=== PATIENT | female | born 1940 | race Caucasian/White ===

== ENCOUNTER 2017-11-08 19:08 | Inpatient (IN) | payer MEDICARE ==
[~2017-11-08] VITALS: Ht 152.4 cm; Wt 71.7 kg
[~2017-11-08 19:08] MED LIST: ATEN25TA PO; GLIP5TAB10 PO; HYDR30CR61 TP; OMEG1CAP28 PO; POLY17PO5 PO; SIMV10TA3 PO
--- NOTE | 2017-11-08 19:23 | ED.ADGEN ---
Past History Past Medical History: Bronchitis, Pneumonia, Other Adult General Chief Complaint Chief Complaint " I ve been coughing and sick since tuesday... it feel like there is a hum in my chest.. like a cat purring... when I breath..."." I feel short of breath ... " I ve had pneumonia three times now..."..." I cant get any rest because of the constant coughing..." HPI HPI Patient is a 77 year old female who presents with above hx and complaints of coughing. Pt. complaints of increased dyspnea. Pt. denies any travel or specific ill contacts. Patient has history of episodes of pneumonia in the past. Patient reports severe coughing episode, and has been unable to sleep at night. Patient normally follows with Dr Lloyd. . Review of Systems Review of Systems Constitutional: Complaints of fever and chills [] Eyes: Denies change in visual acuity, redness, or eye pain [] HENT: Hx of nasal congestion and sore throat [] Respiratory : Compliant of cough and shortness of breath [] Cardiovascular: No additional information not addressed in HPI [] GI: Denies abdominal pain, nausea, vomiting, bloody stools or diarrhea [] : Denies dysuria or hematuria [] Musculoskeletal: Denies back pain or joint pain [] Integument: Denies rash or skin lesions [] Neurologic: Denies headache, focal weakness or sensory changes [] Endocrine: Denies polyuria or polydipsia [] All other systems were reviewed and found to be within normal limits, except as documented in this note. Family History Family History Non-contributory Current Medications Current Medications Current Medications Medications (Trade) Dose Ordered Sig/Carolyn Start Time Stop Time Status Last Admin Dose Admin Albuterol/ Ipratropium (Duoneb) 3 ml 1X ONCE 11/08/17 21:00 11/08/17 21:01 Aspirin (Children'S Aspirin) 324 mg 1X ONCE 11/08/17 19:45 11/08/17 19:46 DC 11/08/17 19:58 324 MG Enoxaparin Sodium (Lovenox 80mg Syringe) 70 mg 1X ONCE 11/08/17 20:45 11/08/17 20:49 DC Methylprednisolone Sodium Succinate (SOLU-Medrol 125MG VIAL) 125 mg 1X ONCE 11/08/17 21:00 11/08/17 21:01 Allergies Allergies Allergies Coded Allergies Type Severity Reaction Last Updated Verified adhesive Allergy Intermediate TAPE "Tears skin off" 07/19/14 Yes Physical Exam Physical Exam Constitutional: Moderately acute distress, non-toxic appearance. [] HENT: Normocephalic, atraumatic, bilateral external ears normal, injected pharynx, oropharynx moist, no oral exudates, nose rhinorrhea. Eyes: PERRLA, EOMI, conjunctiva normal, no discharge. [] Neck: Normal range of motion, no tenderness, supple, no stridor. [] Cardiovascular:Heart rate regular rhythm, no murmur , PMI to Lt. Lungs & Thorax: Bilateral breath sounds equal apex with scattered wheezes on auscultation [] Abdomen: Bowel sounds normal, soft, no tenderness, no masses, no pulsatile masses. Obese Skin: Warm, dry, no erythema, no rash. [] Back: No tenderness, no CVA tenderness. [] Extremities: No tenderness, no cyanosis, no clubbing, ROM intact, 1-2+ ankle edema. [] No cording appreciated. Neurologic: Alert and oriented X 3, normal motor function, normal sensory function, no focal deficits noted. [] Psychologic: Affect anxious, judgement normal, mood normal. [] Current Patient Data Vital Signs Vital Signs Date Time Temp Pulse Resp B/P (MAP) Pulse Ox O2 Delivery O2 Flow Rate FiO2 11/08/17 19:08 80 18 96 Room Air Lab Results Laboratory Tests Test 11/08/17 19:30 11/08/17 20:01 White Blood Count 6.9 x10^3/uL (4.0-11.0) Red Blood Count 4.63 x10^6/uL (3.50-5.40) Hemoglobin 14.8 g/dL (12.0-15.5) Hematocrit 43.5 % (36.0-47.0) Mean Corpuscular Volume 94 fL (79-100) Mean Corpuscular Hemoglobin 32 pg (25-35) Mean Corpuscular Hemoglobin Concent 34 g/dL (31-37) Red Cell Distribution Width 12.8 % (11.5-14.5) Platelet Count 158 x10^3/uL (140-400) Neutrophils (%) (Auto) 49 % (31-73) Lymphocytes (%) (Auto) 37 % (24-48) Monocytes (%) (Auto) 7 % (0-9) Eosinophils (%) (Auto) 6 % (0-3) H Basophils (%) (Auto) 1 % (0-3) Neutrophils # (Auto) 3.4 x10^3uL (1.8-7.7) Lymphocytes # (Auto) 2.6 x10^3/uL (1.0-4.8) Monocytes # (Auto) 0.5 x10^3/uL (0.0-1.1) Eosinophils # (Auto) 0.4 x10^3/uL (0.0-0.7) Basophils # (Auto) 0.1 x10^3/uL (0.0-0.2) Prothrombin Time 11.5 SEC (9.4-11.4) H Prothrombin Time INR 1.1 (0.9-1.1) PTT 26 SEC (23-33) D-Dimer (Earlene) 0.58 mg/L (0.00-0.50) H Sodium Level 139 mmol/L (136-145) Potassium Level 4.2 mmol/L (3.5-5.1) Chloride Level 103 mmol/L (98-107) Carbon Dioxide Level 27 mmol/L (21-32) Anion Gap 9 (6-14) Blood Urea Nitrogen 23 mg/dL (7-20) H Creatinine 0.8 mg/dL (0.6-1.0) Estimated GFR (Cockcroft-Gault) 69.2 Glucose Level 74 mg/dL (70-99) Lactic Acid Level 1.1 mmol/L (0.4-2.0) Calcium Level 9.2 mg/dL (8.5-10.1) Magnesium Level 1.8 mg/dL (1.8-2.4) Total Bilirubin 0.7 mg/dL (0.2-1.0) Direct Bilirubin 0.2 mg/dL (0.0-0.2) Aspartate Amino Transferase (AST) 33 U/L (15-37) Alanine Aminotransferase (ALT) 29 U/L (14-59) Alkaline Phosphatase 103 U/L (46-116) Creatine Kinase 89 U/L (26-192) Creatine Kinase MB (Mass) 0.9 ng/mL (0.0-3.6) Creatine Kinase MB Relative Index 1.0 % (0-4) Troponin I Quantitative < 0.017 ng/mL (0-0.055) EW-Blh-O-Type Natriuretic Peptide 102 pg/mL (0-449) Total Protein 8.3 g/dL (6.4-8.2) H Albumin 3.9 g/dL (3.4-5.0) Lipase 240 U/L (73-393) Influenza Type A (Rapid) Negative (NEGATIVE) Influenza Type B (Rapid) Negative (NEGATIVE) Urine Collection Type Unknown Urine Color Yellow Urine Clarity Clear Urine pH 5.5 Urine Specific [place] <=1.005 Urine Protein Neg (NEG-TRACE) Urine Glucose (UA) Neg mg/dL (NEG) Urine Ketones (Stick) Neg mg/dL (NEG) Urine Blood Trace (NEG) Urine Nitrite Neg (NEG) Urine Bilirubin Neg (NEG) Urine Urobilinogen Dipstick 0.2 mg/dL (0.2 mg/dL) Urine Leukocyte Esterase Small (NEG) Urine RBC Occ /HPF (0-2) Urine WBC Occ /HPF (0-4) Urine Squamous Epithelial Cells Occ /LPF Urine Bacteria 0 /HPF (0-FEW) Urine Opiates Screen Neg (NEG) Urine Methadone Screen Neg (NEG) Urine Barbiturates Neg (NEG) Urine Phencyclidine Screen Neg (NEG) Urine Amphetamine/Methamphetamine Neg (NEG) Urine Benzodiazepines Screen Neg (NEG) Urine Cocaine Screen Neg (NEG) Urine Cannabinoids Screen Neg (NEG) Urine Ethyl Alcohol Neg (NEG) EKG EKG My interpretation of EKG shows a sinus rhythm at 77 bpm. No findings acute STEMI with contralateral changes.[] Radiology/Procedures Radiology/Procedures My interpretation of chest x-ray shows cardiomegaly and some basilar linear atelectasis versus infiltrate. Does have some findings consistent with bronchial cuffing. CT chest pending at time of admission.[] Course & Med Decision Making Course & Med Decision Making Pertinent Labs and Imaging studies reviewed. (See chart for details). Discussed presentation, testing and treatment plan with Dr. Lloyd. Will admit for further eval.and tx. 2030 hrs [] Final Impression Final Impression 1. Cough[] 2. Dyspnea 3. Bronchitis/ COPD exacerbation 4. UTI 5. Viral Syndrome 6. Elevated D-dimer Problems: Dragon Disclaimer Dragon Disclaimer This electronic medical record was generated, in whole or in part, using a voice recognition dictation system. ÁLVARO VERA MD Nov 08, 2017 19:23
[2017-11-08] MEDS ORDERED: ASPIRIN 81 MG TAB.CHEW PO ONE (19:45)
[2017-11-08 20:11] LABS: BASO # 0.1 x10^3/uL (0.0-0.2); BASO % 1 % (0-3); EOS # 0.4 x10^3/uL (0.0-0.7); EOS % 6 % (0-3); HEMATOCRIT 43.5 % (36.0-47.0); HEMOGLOBIN 14.8 g/dL (12.0-15.5); LYMPH # 2.6 x10^3/uL (1.0-4.8); LYMPH % 37 % (24-48); MEAN CORPUSCULAR HEMOGLOBIN 32 pg (25-35); MEAN CORPUSCULAR HGB CONC 34 g/dL (31-37); MEAN CORPUSCULAR VOLUME 94 fL (79-100); MONO # 0.5 x10^3/uL (0.0-1.1); MONO % 7 % (0-9); NEUT # 3.4 x10^3uL (1.8-7.7); NEUT % 49 % (31-73); PLATELET COUNT 158 x10^3/uL (140-400); RED BLOOD COUNT 4.63 x10^6/uL (3.50-5.40); RED CELL DISTRIBUTION WIDTH 12.8 % (11.5-14.5); WHITE BLOOD COUNT 6.9 x10^3/uL (4.0-11.0)
[2017-11-08 20:25] LABS: ALBUMIN 3.9 g/dL (3.4-5.0); CALCIUM 9.2 mg/dL (8.5-10.1); CREATININE 0.8 mg/dL (0.6-1.0); DIRECT BILIRUBIN 0.2 mg/dL (0.0-0.2); GFR 69.2; MAGNESIUM 1.8 mg/dL (1.8-2.4); POTASSIUM 4.2 mmol/L (3.5-5.1); TOTAL BILIRUBIN 0.7 mg/dL (0.2-1.0); TOTAL PROTEIN 8.3 g/dL (6.4-8.2)
[2017-11-08 20:25] LABS: BACTERIA,URINE 0 /HPF (0-FEW); BILIRUBIN,URINE NEG (NEG); CLARITY,URINE CLEAR; COLOR,URINE YELLOW; GLUCOSE,URINE NEG (NEG); NITRITE,URINE NEG (NEG); RBC,URINE OCC /HPF (0-2); SQUAMOUS EPITHELIAL CELL,UR OCC /LPF; UROBILINOGEN,URINE 0.2 mg/dL (0.2 mg/dL); WBC,URINE OCC /HPF (0-4)
[2017-11-08 20:38] LABS: BARBITURATES NEG (NEG); BENZODIAZEPINES NEG (NEG); CANNABINOIDS NEG (NEG); COCAINE NEG (NEG); METHADONE NEG (NEG); OPIATES NEG (NEG); PHENCYCLIDINE NEG (NEG)
[2017-11-08 20:41] LABS: AMPHETAMINE/METHAMPHETAMINE NEG (NEG)
[2017-11-08] MEDS ORDERED: ENOXAPARIN ** NOTE DOSE ** SYRINGE SQ ONE (20:45)
[2017-11-08 20:47] LABS: INFLUENZA A PATIENT NEGATIVE (NEGATIVE); INFLUENZA B PATIENT NEGATIVE (NEGATIVE)
[2017-11-08] MEDS ORDERED: IPRATRPIUM/ALBUTEROL 0.5/2.5MG 3 ML NEBU. NEB ONE (21:00)
[2017-11-08] MEDS ORDERED: ONDANSETRON PF 4 MG/2 ML VIAL. IV PRN (21:00)
[2017-11-08] MEDS ORDERED: methylPREDNISolone SOD SUCC PF 125 MG/2 ML VIAL. IV ONE (21:00)
[2017-11-08] MEDS ORDERED: cefTRIAXone IV Push 1 GM VIAL. IVP ONE (21:30)
[2017-11-08] MEDS ORDERED: CONTRAST GIVEN MC PRN (21:30)
[2017-11-08] MEDS ORDERED: IOHEXOL 300 MG/ML 75 ML VIAL. IV ONE (21:30)
--- NOTE | 2017-11-08 21:59 | RAD ---
PQRS Compliance Statement: One or more of the following individualized dose reduction techniques were utilized for this examination: 1. Automated exposure control 2. Adjustment of the mA and/or kV according to patient size 3. Use of iterative reconstruction technique CT angiography chest November 08, 2017 INDICATION: Chest pain on the left. History of pneumonia and COPD. COMPARISON: CT chest December 15, 2011. TECHNIQUE: Multiple axial CT images of the chest were obtained after the intravenous administration of 75 cc Omnipaque 300. Coronal and sagittal reformats are provided. Maximum intensity projection images are provided. FINDINGS: The thyroid gland is normal in appearance. There are no pathologically enlarged axillary, mediastinal or hilar lymph nodes. Heart size is enlarged. Thoracic aorta is normal in course and caliber. There is no pericardial effusion. There is adequate opacification of the pulmonary arterial system. No filling defects are identified to suggest acute or chronic pulmonary embolism. There is a solid noncalcified pulmonary nodule in the left lower lobe measuring 6 mm (series 4, image 84). There is a subpleural solid noncalcified pulmonary nodule in the right lower lobe measuring 6 mm (series 4, image 88). These findings are stable dating back to 2011 and presumed benign. Subsegmental atelectasis is noted at the lung bases. No new or enlarging solid noncalcified pulmonary nodules are visualized. There are no pleural effusions. There is no pulmonary vascular congestion or pneumothorax. Mild bronchial wall thickening suggestive of bronchitis. A superior pole left renal cyst is partially characterized. Cyst measures approximately 3.0 cm. No suspicious osseous lesions are identified. Sclerotic density involving T6 is favored to represent a bone island. IMPRESSION: 1. No evidence for acute pulmonary embolism. 2. Mild bronchial wall thickening is suggestive of bronchitis. 3. Mild cardiomegaly. Electronically signed by: Clarisa Hernandez MD (11/08/2017 9:56 PM) [facility] [place]
[2017-11-08 22:00] VITALS: BP 132/63
--- NOTE | 2017-11-08 22:56 | EKG ---
[address] [address] Test Date: 2017-11-08 Test Time: 19:38:22 Pat Name: MARCE CAMPBELL Department: Room: Gender: F Report Clerk: NICKIE : 1940 Requested By: ÁLVARO VERA Order Number: [id number] Reading MD: Measurements Intervals [place] Rate: 77 P: 37 SD: 160 QRS: 21 QRSD: 82 T: 47 QT: 394 QTc: 448 Interpretive Statements SINUS ARRHYTHMIA OTHERWISE NORMAL ECG RI6.01 No previous ECG available for comparison
[2017-11-08] MEDS ORDERED: SIMV20TA3 PO (23:07)
[2017-11-08] MEDS ORDERED: NITR0.4T SL (23:07)
[2017-11-08] MEDS ORDERED: ALPR0.254 PO (23:07)
[2017-11-08] MEDS ORDERED: ATEN50TA PO (23:07)
[2017-11-09 05:00] VITALS: BP 124/71
[2017-11-09 06:54] LABS: BASO % 0 % (0-3); EOS % 0 % (0-3); HEMATOCRIT 42.5 % (36.0-47.0); HEMOGLOBIN 14.5 g/dL (12.0-15.5); LYMPH # 0.7 x10^3/uL (1.0-4.8); LYMPH % 18 % (24-48); MEAN CORPUSCULAR HEMOGLOBIN 32 pg (25-35); MEAN CORPUSCULAR HGB CONC 34 g/dL (31-37); MEAN CORPUSCULAR VOLUME 93 fL (79-100); MONO % 1 % (0-9); NEUT # 3.4 x10^3uL (1.8-7.7); NEUT % 81 % (31-73); PLATELET COUNT 137 x10^3/uL (140-400); RED BLOOD COUNT 4.55 x10^6/uL (3.50-5.40); WHITE BLOOD COUNT 4.2 x10^3/uL (4.0-11.0)
[2017-11-09 06:59] LABS: CREATININE 0.9 mg/dL (0.6-1.0); GFR 60.4; POTASSIUM 4.1 mmol/L (3.5-5.1)
--- NOTE | 2017-11-09 07:49 | RAD ---
2 Views of the Chest 11/08/2017 9:35 PM Indication: cough, chest discomfort left side, shortness of breath Comparison: Chest radiograph July 28, 2013 Findings: There is no focal consolidation or infiltrate identified. There is no effusion or pneumothorax. The cardiomediastinal silhouette and pulmonary vasculature are within normal limits. No osseous abnormality is identified. Impression: No evidence of acute cardiopulmonary process.
[2017-11-09] MEDS ORDERED: ALPRAZolam 0.25 MG TABLET PO PRN (08:30)
[2017-11-09] MEDS: methylPREDNISolone SOD SUCC PF 40 MG/ML VIAL. IV SCH ×2 (08:32→21:03)
[2017-11-09] MEDS: LACTOBACILLUS RHAMNOSUS GG 1 CAPSULE. PO SCH ×2 (08:33→21:05)
[2017-11-09] MEDS: glipiZIDE 5 MG TABLET PO SCH (08:33)
[2017-11-09] MEDS: OMEGA-3 FATTY ACIDS/FISH OIL 1,000 MG CAPSULE. PO SCH (08:33)
[2017-11-09] MEDS: ATENOLOL 50 MG TABLET PO SCH (08:34)
[2017-11-09] MEDS: ENOXAPARIN 40 MG/0.4 ML DISP.SYRIN. SQ SCH ×2 (08:35→21:03)
[2017-11-09] MEDS: cefTRIAXone IV Push 1 GM VIAL. IVP SCH (08:39)
[2017-11-09 08:51] VITALS: BP 144/75
--- NOTE | 2017-11-09 11:59 | HP ---
ADMIT DATE: 11/08/2017 HISTORY OF PRESENT ILLNESS: A 77-year-old female, 3-4 days' of increased shortness of breath, could not breathe, came in through the Emergency Room, was found to have acute exacerbation of COPD and acute bronchitis, admitted because of shortness of breath, difficulty breathing, using accessory muscles to breathe. The patient was admitted for IV Solu-Medrol and aggressive pulmonary toilet as well as antibiotics. PAST MEDICAL HISTORY: Cataract extraction, tonsillectomy, cardiac disorders, coronary angioplasty with x 1, hypercholesterolemia, hypertension, COPD, bronchitis, diverticulosis, cholecystectomy, hemorrhoids, abdominal surgeries, hysterectomy, total bladder suspension, urinary tract infection, arthritis of the thumb, cyst removed from the right ankle, endocrine disorders, diabetes, depression, anxiety, blood transfusions in the past. IMMUNIZATIONS: Influenza and pneumococcal vaccines up-to-date. ALLERGIES: THE PATIENT HAS ADHESIVE ADVERSE REACTION. MEDICATIONS: At home include Xanax 0.25 every 6 hours., Tenormin 50, Glucotrol 5, [place]-3, Zofran 4, simvastatin 20. SOCIAL HISTORY: The patient denies smoking, alcohol, or drug use. REVIEW OF SYSTEMS: The patient denies any headaches, vision change, blurred vision, double vision. Denies any melena, hematochezia, or hematemesis, and neurologically intact. PHYSICAL EXAMINATION: GENERAL: A pleasant white female, extremely short of breath. VITAL SIGNS: Blood pressure 120/70, respiratory rate 20, pulse 90, afebrile. HEENT: The patient's head was atraumatic and normocephalic. Eyes: PERRLA without jaundice. The mouth and throat were normal. NECK: Supple. No JVD or thyromegaly. LUNGS: Diminished, poor movement of air with expiratory wheezes. CARDIOVASCULAR: Regular sinus rhythm, S1, S2, without murmur, rub, thrill, or extra heart sounds. ABDOMEN: Soft, protuberant, nontender. EXTREMITIES: No clubbing, cyanosis, or edema. NEUROLOGIC: The patient is alert and oriented x 3. Speech is fluent, spontaneous, appropriate. Cranial nerves 2-12 are grossly intact. ASSESSMENT AND PLAN: The patient was admitted for further evaluation and treatment of acute exacerbation of asthma, chronic obstructive pulmonary disease, acute bronchitis, hyperglycemia. The patient continued to be monitored in the unit and make further evaluation as indicated. SONG AGRAWAL MD DR: ARNULFO/jack JOB#: [id number] / [id number]
[2017-11-09 12:05] VITALS: BP 134/78
[2017-11-09 17:49] VITALS: BP 119/89
[2017-11-09 19:04] VITALS: BP 104/56
[2017-11-09] MEDS ORDERED: SIMVASTATIN 20 MG TABLET PO SCH (21:00)
[2017-11-09 22:45] VITALS: BP 98/51
[2017-11-10 05:50] VITALS: BP 98/53
[2017-11-10 06:13] LABS: BASO # 0.1 x10^3/uL (0.0-0.2); BASO % 1 % (0-3); EOS # 0.4 x10^3/uL (0.0-0.7); EOS % 4 % (0-3); HEMATOCRIT 40.5 % (36.0-47.0); HEMOGLOBIN 13.8 g/dL (12.0-15.5); LYMPH # 1.2 x10^3/uL (1.0-4.8); LYMPH % 10 % (24-48); MEAN CORPUSCULAR HEMOGLOBIN 33 pg (25-35); MEAN CORPUSCULAR HGB CONC 34 g/dL (31-37); MEAN CORPUSCULAR VOLUME 97 fL (79-100); MONO # 0.4 x10^3/uL (0.0-1.1); MONO % 3 % (0-9); NEUT # 10.8 x10^3uL (1.8-7.7); NEUT % 84 % (31-73); PLATELET COUNT 148 x10^3/uL (140-400); RED CELL DISTRIBUTION WIDTH 12.9 % (11.5-14.5); WHITE BLOOD COUNT 12.9 x10^3/uL (4.0-11.0)
[2017-11-10 06:19] LABS: ALBUMIN 3.3 g/dL (3.4-5.0); ALBUMIN/GLOBULIN RATIO 0.8 (1.0-1.7); CALCIUM 9.3 mg/dL (8.5-10.1); CREATININE 0.9 mg/dL (0.6-1.0); GFR 60.4; POTASSIUM 4.3 mmol/L (3.5-5.1); TOTAL BILIRUBIN 0.4 mg/dL (0.2-1.0); TOTAL PROTEIN 7.7 g/dL (6.4-8.2)
[2017-11-10] MEDS: LACTOBACILLUS RHAMNOSUS GG 1 CAPSULE. PO SCH (08:54)
[2017-11-10] MEDS: glipiZIDE 5 MG TABLET PO SCH (08:54)
[2017-11-10] MEDS: ATENOLOL 50 MG TABLET PO SCH (08:57)
[2017-11-10] MEDS: OMEGA-3 FATTY ACIDS/FISH OIL 1,000 MG CAPSULE. PO SCH (08:57)
[2017-11-10] MEDS: methylPREDNISolone SOD SUCC PF 40 MG/ML VIAL. IV SCH (09:00)
[2017-11-10] MEDS: cefTRIAXone IV Push 1 GM VIAL. IVP SCH (09:04)
[2017-11-10] MEDS: ENOXAPARIN 40 MG/0.4 ML DISP.SYRIN. SQ SCH (09:16)
--- NOTE | 2017-11-10 09:40 | PN ---
DATE: 11/08/2017 SUBJECTIVE: This is a 77-year-old female patient. The patient came in with acute exacerbation of asthma and acute bronchitis. The patient is breathing a little bit better today, still somewhat short of breath with minimal exertion. OBJECTIVE: VITAL SIGNS: Blood pressure still down at 98/53, respirations 18, pulse 71, afebrile. LUNGS: Diminished, but clearer than they have been. CARDIOVASCULAR: Regular sinus rhythm, S1-S2. ABDOMEN: Soft, nontender. The patient will continue to be monitored. Taper down on Solu-Medrol, PT/OT, adjust her other medications for her blood pressure and make further assessment as indicated. IMPRESSION: Acute exacerbation of chronic obstructive pulmonary disease, acute respiratory failure, acute bronchitis. SONG AGRAWAL MD DR: ARNULFO/jack JOB#: [id number] / [id number]
[2017-11-10] MEDS ORDERED: ALBU8.5H8 INH (10:37)
[2017-11-10] MEDS ORDERED: AZIT1PAC PO (10:39)
[2017-11-10 10:48] LABS: % BANDS 1 % (0-9); % LYMPHS 9 % (24-48); % MONOS 1 % (0-10); % SEGS 89 % (35-66); PLT ESTIMATE ADEQUATE (ADEQUATE)
[2017-11-10 11:16] VITALS: BP 137/65
[2017-11-11] MEDS ORDERED: ENOXAPARIN 40 MG/0.4 ML DISP.SYRIN. SQ SCH (09:00)
== END 2017-11-10 12:48 | disposition home or self-care (01) | DRG 189 ==
LOC: ER 19:08 → ICU 20:18 → ER 21:45
PROVIDERS: ADMIT Family Medicine; ATTEND Family Medicine
DX: J96.00 Acute respiratory failure, unspecified whether with hypoxia or hypercapnia (principal); E11.65 Type 2 diabetes mellitus with hyperglycemia; J44.0 Chronic obstructive pulmonary disease with (acute) lower respiratory infection; J44.1 Chronic obstructive pulmonary disease with (acute) exacerbation; J45.901 Unspecified asthma with (acute) exacerbation; N39.0 Urinary tract infection, site not specified; M19.049 Primary osteoarthritis, unspecified hand; J20.9 Acute bronchitis, unspecified; K57.90 Diverticulosis of intestine, part unspecified, without perforation or abscess without bleeding; F32.9 Major depressive disorder, single episode, unspecified; F41.9 Anxiety disorder, unspecified; B34.9 Viral infection, unspecified; E78.00 Pure hypercholesterolemia, unspecified; I10 Essential (primary) hypertension; Z90.710 Acquired absence of both cervix and uterus; Z87.01 Personal history of pneumonia (recurrent); Z98.61 Coronary angioplasty status; Z91.048 Other nonmedicinal substance allergy status; Z98.49 Cataract extraction status, unspecified eye; Z90.49 Acquired absence of other specified parts of digestive tract; Z90.89 Acquired absence of other organs; Z87.440 Personal history of urinary (tract) infections
CPT/HCPCS: 36415; 71046; 71275; 80048; 80053; 80076; 80307; 81001; 82553; 83605; 83690; 83735; 83880; 84443; 84484; 85007; 85025; 85379; 85610; 85730; 87040; 87086; 87641; 87804; 93005; 94640; 96372; 96374; 96375; J0696; J1650; J2920; J2930; J7620; Q9967; 99285-25; G0479

== ENCOUNTER 2019-08-19 16:59 | Emergency (ER) | payer MEDICARE ==
[~2019-08-19] VITALS: Ht 152.4 cm; Wt 71.7 kg
[~2019-08-19 16:59] MED LIST changes: +ALBU2.5V8 INH; +ALPR0.254 PO; -ATEN25TA PO; +ATEN25TA42 PO; +ATEN50TA PO; +AZIT1PAC PO; +NITR0.4T24 SL; +SIMV10TA15 PO; -SIMV10TA3 PO; +SIMV20TA18 PO
[2019-08-19 17:00] VITALS: BP 163/85
--- NOTE | 2019-08-19 17:43 | PHYS DOC ---
Past History Past Medical History: Angina, Bronchitis, COPD, Diabetes, Hypertension, Pneumonia, Other (FAN MATHEW DO) Past Surgical History: Cholecystectomy, Hysterectomy (FAN MATHEW DO) Smoking: Non-smoker Alcohol Use: None Drug Use: None (FAN MATHEW DO) Adult General Chief Complaint Chief Complaint: BACK PAIN OR INJURY HPI HPI Patient is a 79-year-old female presents complaining of back pain. This is been present for the past 2 days. No trauma. No loss of bowel or bladder control. She has been doing increased moving, twisting, and lifting, especially today when she baked 200 cookies. There has been no loss of bowel or bladder control. No fever. No history of injection drug use/abuse. No numbness or tingling. Increased discomfort with movement. No relief with an adee-jje-jqnenng ibuprofen that she took around 9:00 this morning. No cough or fever. Pain is moderate in intensity.[] (FAN MATHEW DO) Review of Systems Review of Systems Constitutional: Denies fever or chills [] Eyes: Denies change in visual acuity, redness, or eye pain [] HENT: Denies nasal congestion or sore throat [] Respiratory: Denies cough or shortness of breath [] Cardiovascular: No chest pain or palpitations[] GI: Denies abdominal pain, nausea, vomiting, bloody stools or diarrhea [] : Denies dysuria or hematuria [] Musculoskeletal: See history of present illness[] Integument: Denies rash or skin lesions [] Neurologic: Denies headache, focal weakness or sensory changes [] Endocrine: Denies polyuria or polydipsia [] All other systems were reviewed and found to be within normal limits, except as documented in this note. (FAN MATHEW DO) Current Medications Current Medications Current Medications Medications (Trade) Dose Ordered Sig/Carolyn Start Time Stop Time Status Last Admin Dose Admin Ketorolac Tromethamine (Toradol 15mg Vial) 15 mg 1X ONCE 08/19/19 17:45 08/19/19 17:46 UNV (FAN MATHEW DO) Allergies Allergies Allergies Coded Allergies Type Severity Reaction Last Updated Verified adhesive Allergy Intermediate TAPE "Tears skin off" 11/08/17 Yes I S O L A T I O N *CONTACT* Allergy Unknown 11/09/17 Yes ([facility]) Physical Exam Physical Exam Constitutional: Well developed, well nourished, no acute distress, non-toxic appearance. [] HENT: Normocephalic, atraumatic, bilateral external ears normal, oropharynx moist, no oral exudates, nose normal. [] Eyes: PERRLA, EOMI, conjunctiva normal, no discharge. [] Neck: Normal range of motion, no tenderness, supple, no stridor. [] Cardiovascular:Heart rate regular rhythm, no murmur [] Lungs & Thorax: Bilateral breath sounds clear to auscultation, no increased work of breathing [] Abdomen: Bowel sounds normal, soft, no tenderness, no masses, no pulsatile masses. [] Skin: Warm, dry, no erythema, no rash. [] Back: Tenderness in the low thoracic/upper lumbar paraspinal musculature. No midline tenderness. No step-off or crepitus. Essentially full active range of motion with slightly limited forward bending. Normal gait. Increased discomfort with tiptoe walking when compared to normal gait or heel walking. Strength is 5 out of 5 in the lower extremities, DTRs are 2 over 4 and symmetric in the patella and the Achilles tendon reflex. No CVA tenderness. [] Extremities: No tenderness, no cyanosis, no clubbing, ROM intact, no edema. [] Neurologic: Alert and oriented X 3, normal motor function, normal sensory function, no focal deficits noted. [] Psychologic: Affect normal, judgement normal, mood normal. [] ([facility]) Current Patient Data Vital Signs Vital Signs Date Time Temp Pulse Resp B/P (MAP) Pulse Ox O2 Delivery O2 Flow Rate FiO2 08/19/19 17:00 97.6 79 18 97 Room Air ([facility]) EKG EKG [] ([facility]) Radiology/Procedures Radiology/Procedures [] ([facility]) Impressions: Chest PA and lateral 08/19/2019. Reason for exam: Back pain. Comparison is made with a study of 11/08/2017. No infiltrate or effusion is seen. Heart size and pulmonary vascularity appear normal. IMPRESSION: No acute disease. Lumbar spine AP and lateral views There is mild anterior offset of L4 on L5 and L3 beneath L2. Alignment is otherwise normal. There is no loss of vertebral body height or other evidence for fracture. No destructive process is seen. There is disc narrowing at L2-3 and L5-S1. IMPRESSION: Degenerative changes. No apparent acute abnormality. Electronically signed by: Pam Obando Jr., MD (08/19/2019 6:22 PM) [facility] DICTATED AND SIGNED BY: PAM OBANDO Jr, MD DATE: 08/19/191821 CC: SONG AGRAWAL MD; FAN MATHEW DO ~ (SHANE GARCIAS DO) Course & Med Decision Making Course & Med Decision Making Pertinent Labs and Imaging studies reviewed. (See chart for details) ED course: Patient arrived, was placed in bed, and tolerated exam well. Patient was given parenteral pain medicine, x-rays were obtained. Patient care was endorsed to the nighttime physician at 1800 with imaging findings pending. Her dipstick urine notes moderate leukocyte esterase. This is being sent for culture.[] (FAN MATHEW DO) Course & Med Decision Making The patient's workup is significant for urinary tract infection. I will treat this with oral medication. We will give her first dose of Keflex in the ED. Her lumbar spine x-ray does show some significant degenerative change that is likely not acute. I suspect this is the source of her discomfort. She is feeling much better after her Toradol. She would like to go home. She is stable for discharge at this time. (SHANE GARCIAS DO) Dragon Disclaimer Dragon Disclaimer This electronic medical record was generated, in whole or in part, using a voice recognition dictation system. (FAN MATHEW DO) Departure Departure: Impression: Primary Impression: Degenerative disk disease Additional Impression: UTI (urinary tract infection) Disposition: HOME, SELF-CARE Condition: STABLE Referrals: SONG AGRAWAL MD (PCP) Patient Instructions: Degenerative Disk Disease, Urinary Tract Infection, Jzkm-[id number] Scripts Cephalexin (KEFLEX) 500 Mg Capsule 1 CAP PO TID for UTI for 7 Days, #21 CAP 0 Refills Prov: SHANE GARCIAS DO 08/19/19 Problem Qualifiers Primary Impression: Degenerative disk disease Spinal region: lumbar Qualified Codes: M51.36 - Other intervertebral disc degeneration, lumbar region Additional Impression: UTI (urinary tract infection) Urinary tract infection type: acute cystitis Hematuria presence: without hematuria Qualified Codes: N30.00 - Acute cystitis without hematuria FAN MATHEW DO Aug 19, 2019 17:43 SHANE GARCIAS DO Aug 19, 2019 18:30
[2019-08-19] MEDS ORDERED: KETOROLAC 15 MG/ML VIAL. IM ONE (17:45)
--- NOTE | 2019-08-19 18:25 | RAD ---
Chest PA and lateral 08/19/2019. Reason for exam: Back pain. Comparison is made with a study of 11/08/2017. No infiltrate or effusion is seen. Heart size and pulmonary vascularity appear normal. IMPRESSION: No acute disease. Lumbar spine AP and lateral views There is mild anterior offset of L4 on L5 and L3 beneath L2. Alignment is otherwise normal. There is no loss of vertebral body height or other evidence for fracture. No destructive process is seen. There is disc narrowing at L2-3 and L5-S1. IMPRESSION: Degenerative changes. No apparent acute abnormality. Electronically signed by: Gonzalez Obando Jr., MD (08/19/2019 6:22 PM) [facility]
[2019-08-19 18:37] LABS: BILIRUBIN,URINE NEG (NEG); CLARITY,URINE CLOUDY; COLOR,URINE YELLOW; GLUCOSE,URINE NEG (NEG)
[2019-08-19 18:38] LABS: BACTERIA,URINE MOD /HPF (0-FEW); NITRITE,URINE NEG (NEG); SQUAMOUS EPITHELIAL CELL,UR MOD /LPF
[2019-08-19] MEDS ORDERED: CEPH-264 PO (19:00)
[2019-08-19] MEDS ORDERED: CEPHALEXIN 250 MG CAPSULE PO ONE (19:00)
== END 2019-08-19 19:17 | disposition home or self-care (01) ==
LOC: ER 16:59
DX: M51.36 Other intervertebral disc degeneration, lumbar region (principal); N30.00 Acute cystitis without hematuria; J44.9 Chronic obstructive pulmonary disease, unspecified; E11.9 Type 2 diabetes mellitus without complications; I10 Essential (primary) hypertension; Z90.49 Acquired absence of other specified parts of digestive tract; Z90.710 Acquired absence of both cervix and uterus; Z91.041 Radiographic dye allergy status; Z88.8 Allergy status to other drugs, medicaments and biological substances
CPT/HCPCS: 71046; 72100; 81001; 87086; 96372; 99285; J1885

== ENCOUNTER 2019-10-16 18:50 | Emergency (ER) | payer MEDICARE ==
[~2019-10-16] VITALS: Ht 165.1 cm; Wt 90.5 kg
[~2019-10-16 18:50] MED LIST changes: +CEPH-264 PO
--- NOTE | 2019-10-16 19:01 | PHYS DOC ---
Past History Past Medical History: Angina, Bronchitis, CAD, COPD, Diabetes, Heart Disease, Hypertension, Pneumonia, Other Past Surgical History: Cholecystectomy, Hysterectomy Smoking: Non-smoker Alcohol Use: None Drug Use: None Adult General Chief Complaint Chief Complaint: ".. I been having some leg pain... here in my .. It also hurts .. when I pee... " Pt. " She seems a litte more confused tonight"... " She also she has been dizzy sometimes.. " HPI HPI Patient is a 79 year old female who presents with above hx and complaints of dizzy, dysuria, and left thigh pain. No history of falls or trauma. Patient normally follows with Dr. Agrawal. Daughter lives next door and checks on her frequently. 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 Daughter states that her mother gets a UTI she frequently has similar symptoms as she presents for tonight. Patient denies any travel or specific ill contacts. No history of bad food . Patient currently very interactive. Patient has significant medical history for angina coronary artery disease, UPT, diabetes, pneumonia, arthritis, and frequent urinary tract infections. She states she does not want to be admitted patient did get flu vaccination. Review of Systems Review of Systems Constitutional: Denies fever or chills [] Eyes: Denies change in visual acuity, redness, or eye pain [] HENT: Denies nasal congestion or sore throat [] Respiratory: Denies cough or shortness of breath [] Cardiovascular: No additional information not addressed in HPI [] GI: Denies abdominal pain, nausea, vomiting, bloody stools or diarrhea [] : Complaints of dysuria Musculoskeletal: Denies back pain or joint pain [. The patient]complains of left hip and thigh pain Integument: Denies rash or skin lesions [] Neurologic: Denies headache, focal weakness or sensory changes []complaints of episodes of dizziness Endocrine: Denies polyuria or polydipsia [] All other systems were reviewed and found to be within normal limits, except as documented in this note. Family History Family History has Alzheimer's and disabled due to to a CVA Current Medications Current Medications See nursing for home medications Allergies Allergies Allergies Coded Allergies Type Severity Reaction Last Updated Verified adhesive Allergy Intermediate TAPE "Tears skin off" 11/08/17 Yes I S O L A T I O N *CONTACT* Allergy Unknown 11/09/17 Yes Physical Exam Physical Exam Constitutional: no acute distress, non-toxic appearance. [] HENT: Normocephalic, atraumatic, bilateral external ears normal, oropharynx moist, no oral exudates, nose normal. [] Eyes: PERRLA, EOMI, conjunctiva normal, no discharge. Glasses Neck: Normal range of motion, no tenderness, supple, no stridor. [] Cardiovascular: Slightly irregular Heart rate and rhythm, no murmur []SHAMA to the left Lungs & Thorax: Bilateral breath sounds with apex with few scattered wheezes and mild rhonchi on left lower on auscultation [] Abdomen: Bowel sounds normal, soft, no tenderness, no masses, no pulsatile ma sses. Obese. Old surgery scars. Skin: Warm, dry, no erythema, no rash. [] Poor turgor Back: No tenderness, no CVA tenderness. [] Extremities: Left thigh tenderness, no cyanosis, no clubbing, ROM intact, no edema. [] Arthritic changes. Does have some tenderness along left sciatic nerve Neurologic: Alert and oriented X 3, is extremities on request. Has slightly decreased plantar sensory function, no gross new focal deficits noted per her daughter. Psychologic: Affect anxious, judgement normal, mood normal. [] EKG EKG My interpretation EKG shows a slightly irregular rhythm with ventricular rate of 69. Appears to be a sinus arrhythmia. No acute findings of STEMI.[] Radiology/Procedures Radiology/Procedures [address] [address] IMAGING REPORT Signed PATIENT: MARCE CAMPBELL ACCOUNT: [id number] : 1940 LOCATION: ER AGE: 79 SEX: F EXAM STATUS: REG ER ORD. PHYSICIAN: ÁLVARO VERA MD REASON: Blurred vision, dizzy, headache PROCEDURE: CT HEAD WO CONTRAST EXAM: CT Head without IV contrast CLINICAL HISTORY: Blurry vision, dizziness, headache COMPARISON: None. TECHNIQUE: Routine CT of the head without contrast. Soft tissues and bone windows were reviewed. PQRS compliance statement - One or more of the following individualized dose reduction techniques were utilized for this study: 1. Automated exposure control 2. Adjustment of the mA and/or kV according to patient size 3. Use of iterative reconstruction technique FINDINGS: There is no evidence of hemorrhage, mass or extra-axial fluid collection. Hernández-white differentiation is maintained with no evidence of edema. There is no mass effect or shift of the intracranial structures. The ventricles, basilar cisterns and cortical sulci are normal in size and configuration for the patients stated age. The cerebellum and brainstem are unremarkable. The calvarium demonstrates no evidence of fracture or focal lesion. Changes of hyperostosis frontalis interna. There is normal aeration of the visualized paranasal sinuses and mastoid air cells. The visualized portions of the orbits are normal. IMPRESSION: No evidence for acute intracranial process. Electronically signed by: Ollie Stevenson MD (10/16/2019 7:47 PM) [id number] DICTATED AND SIGNED BY: OLLIE STEVENSON MD DATE: 10/16/191946 CC: SONG AGRAWAL MD; ÁLVARO VERA MD ~ [address] [address] IMAGING REPORT Signed PATIENT: MARCE CAMPBELL ACCOUNT: [id number] : 1940 LOCATION: ER AGE: 79 SEX: F EXAM STATUS: REG ER ORD. PHYSICIAN: ÁLVARO VERA MD REASON: Blurred vision, dizzy, headache PROCEDURE: CT HEAD WO CONTRAST EXAM: CT Head without IV contrast CLINICAL HISTORY: Blurry vision, dizziness, headache COMPARISON: None. TECHNIQUE: Routine CT of the head without contrast. Soft tissues and bone windows were reviewed. PQRS compliance statement - One or more of the following individualized dose reduction techniques were utilized for this study: 1. Automated exposure control 2. Adjustment of the mA and/or kV according to patient size 3. Use of iterative reconstruction technique FINDINGS: There is no evidence of hemorrhage, mass or extra-axial fluid collection. Hernández-white differentiation is maintained with no evidence of edema. There is no mass effect or shift of the intracranial structures. The ventricles, basilar cisterns and cortical sulci are normal in size and configuration for the patients stated age. The cerebellum and brainstem are unremarkable. The calvarium demonstrates no evidence of fracture or focal lesion. Changes of hyperostosis frontalis interna. There is normal aeration of the visualized paranasal sinuses and mastoid air cells. The visualized portions of the orbits are normal. IMPRESSION: No evidence for acute intracranial process. Electronically signed by: Ollie Stevenson MD (10/16/2019 7:47 PM) [id number] DICTATED AND SIGNED BY: OLLIE STEVENSON MD DATE: 10/16/191946 CC: SONG AGRAWAL MD; ÁLVARO VERA MD ~ ][address] [address] IMAGING REPORT Signed PATIENT: MARCE CAMPBELL ACCOUNT: [id number] : 1940 LOCATION: ER AGE: 79 SEX: F EXAM STATUS: REG ER ORD. PHYSICIAN: ÁLVARO VERA MD REASON: Dizzy, short of air PROCEDURE: CHEST PA & LATERAL CHEST PA LATERAL History: Dizziness, shortness of air Comparison: August 19, 2019 Findings: 2 views of the chest are submitted. There is no dependent pleural fluid or pneumothorax. There is minimal opacity left lateral lung base. Pericardial cardiac silhouette is within normal limits in size. There is atherosclerotic calcification near the aortic arch. Impression: 1. There is minimal opacity left lateral lung base which may be mild atelectasis or infiltrate. Electronically signed by: Christi Mckinley MD (10/16/2019 8:28 PM) [id number] DICTATED AND SIGNED BY: CHRISTI MCKINLEY MD DATE: 10/16/192027 CC: SONG AGRAWAL MD; ÁLVARO VERA MD ~ [address] [address] IMAGING REPORT Signed PATIENT: MARCE CAMPBELL ACCOUNT: [id number] : 1940 LOCATION: ER AGE: 79 SEX: F EXAM STATUS: REG ER ORD. PHYSICIAN: ÁLVARO VERA MD REASON: Left mid upper leg pain, difficult to lift PROCEDURE: LEFT FEMUR XRAY LEFT FEMUR XRAY DATE: 10/16/2019 7:37 PM INDICATION: Leg pain COMPARISON: None. FINDINGS: Bones: There is no evidence of acute fracture. No joint dislocation is noted. Miscellaneous: None. IMPRESSION: No evidence of acute fracture. Electronically signed by: Christi Shah MD (10/16/2019 8:27 PM) [id number] DICTATED AND SIGNED BY: CHRISTI SHAH MD DATE: 10/16/192026 CC: SONG AGRAWAL MD; ÁLVARO VERA MD ~ Course & Med Decision Making Course & Med Decision Making Pertinent Labs and Imaging studies reviewed. (See chart for details). Patient take meds as directed. Patient follows with Dr. Agrawal. Patient currently refusing admission and further workup. Will start patient on Levaquin. Must keep follow-up or return if any concerns Impression: 1. History of episodes of dizziness 2. History of dysuria-urinary tract infection 3. Does have a left lower lobe atelectasis or infiltrate 4. Elevated AST 41 5. Mild dehydration -elevated BUN 25 and creatinine 1.2 6. Mild malnutrition albumin 3.2 7. Mild elevation in sedimentation rate 26 [] Dragon Disclaimer Dragon Disclaimer This electronic medical record was generated, in whole or in part, using a voice recognition dictation system. Departure Departure: Disposition: 01 HOME/RESIDENCE PRIOR TO ADM Condition: STABLE Referrals: SONG AGRAWAL MD (PCP) Scripts Levofloxacin (LEVAQUIN) 500 Mg Tablet 500 MG PO DAILY for UTI for 5 Days, #5 TAB Prov: ÁLVARO VERA MD 10/16/19 Dragon Disclaimer This chart was dictated in whole or in part using Voice Recognition software in a busy, high-work load, and often noisy Emergency Department environment. It may contain unintended and wholly unrecognized errors or omissions. ÁLVARO VERA MD Oct 16, 2019 19:00
[2019-10-16] MEDS ORDERED: IV RINGERS SOLUTION,LACTATED 1,000 ML IV SCH (19:02)
--- NOTE | 2019-10-16 19:50 | RAD ---
EXAM: CT Head without IV contrast CLINICAL HISTORY: Blurry vision, dizziness, headache COMPARISON: None. TECHNIQUE: Routine CT of the head without contrast. Soft tissues and bone windows were reviewed. PQRS compliance statement - One or more of the following individualized dose reduction techniques were utilized for this study: 1. Automated exposure control 2. Adjustment of the mA and/or kV according to patient size 3. Use of iterative reconstruction technique FINDINGS: There is no evidence of hemorrhage, mass or extra-axial fluid collection. Hernández-white differentiation is maintained with no evidence of edema. There is no mass effect or shift of the intracranial structures. The ventricles, basilar cisterns and cortical sulci are normal in size and configuration for the patients stated age. The cerebellum and brainstem are unremarkable. The calvarium demonstrates no evidence of fracture or focal lesion. Changes of hyperostosis frontalis interna. There is normal aeration of the visualized paranasal sinuses and mastoid air cells. The visualized portions of the orbits are normal. IMPRESSION: No evidence for acute intracranial process. Electronically signed by: Ollie Alicia MD (10/16/2019 7:47 PM) [id number]
--- NOTE | 2019-10-16 20:30 | RAD ---
LEFT FEMUR XRAY DATE: 10/16/2019 7:37 PM INDICATION: Leg pain COMPARISON: None. FINDINGS: Bones: There is no evidence of acute fracture. No joint dislocation is noted. Miscellaneous: None. IMPRESSION: No evidence of acute fracture. Electronically signed by: Elvis Shah MD (10/16/2019 8:27 PM) [id number]
--- NOTE | 2019-10-16 20:31 | RAD ---
CHEST PA LATERAL History: Dizziness, shortness of air Comparison: August 19, 2019 Findings: 2 views of the chest are submitted. There is no dependent pleural fluid or pneumothorax. There is minimal opacity left lateral lung base. Pericardial cardiac silhouette is within normal limits in size. There is atherosclerotic calcification near the aortic arch. Impression: 1. There is minimal opacity left lateral lung base which may be mild atelectasis or infiltrate. Electronically signed by: Elvis Mckinley MD (10/16/2019 8:28 PM) [id number]
[2019-10-16 20:50] LABS: BILIRUBIN,URINE NEG (NEG); CLARITY,URINE CLOUDY; COLOR,URINE YELLOW; GLUCOSE,URINE NEG (NEG); NITRITE,URINE NEG (NEG); UROBILINOGEN,URINE 0.2 mg/dL (0.2 mg/dL)
[2019-10-16 20:51] LABS: BACTERIA,URINE MANY /HPF (0-FEW); SQUAMOUS EPITHELIAL CELL,UR MOD /LPF; WBC,URINE 20-40 /HPF (0-4)
[2019-10-16 20:52] LABS: CALCIUM 8.6 mg/dL (8.5-10.1); CREATININE 0.8 mg/dL (0.6-1.0); GFR 68.8
[2019-10-16 20:53] LABS: BARBITURATES NEG (NEG); BENZODIAZEPINES NEG (NEG); CANNABINOIDS NEG (NEG); COCAINE NEG (NEG); METHADONE NEG (NEG); OPIATES NEG (NEG); PHENCYCLIDINE NEG (NEG)
[2019-10-16 20:54] LABS: BASO # 0.1 x10^3/uL (0.0-0.2); BASO % 1 % (0-3); EOS # 0.2 x10^3/uL (0.0-0.7); EOS % 3 % (0-3); HEMOGLOBIN 14.7 g/dL (12.0-15.5); LYMPH # 2.7 x10^3/uL (1.0-4.8); LYMPH % 40 % (24-48); MEAN CORPUSCULAR HEMOGLOBIN 32 pg (25-35); MEAN CORPUSCULAR HGB CONC 33 g/dL (31-37); MEAN CORPUSCULAR VOLUME 95 fL (79-100); MONO # 0.5 x10^3/uL (0.0-1.1); MONO % 7 % (0-9); NEUT # 3.4 x10^3uL (1.8-7.7); NEUT % 49 % (31-73); PLATELET COUNT 147 x10^3/uL (140-400); RED BLOOD COUNT 4.64 x10^6/uL (3.50-5.40); RED CELL DISTRIBUTION WIDTH 13.3 % (11.5-14.5); WHITE BLOOD COUNT 6.8 x10^3/uL (4.0-11.0)
[2019-10-16 20:56] LABS: AMPHETAMINE/METHAMPHETAMINE NEG (NEG)
[2019-10-16 21:04] LABS: INFLUENZA A PATIENT NEGATIVE (NEGATIVE); INFLUENZA B PATIENT NEGATIVE (NEGATIVE)
[2019-10-16 21:05] LABS: ALBUMIN 3.5 g/dL (3.4-5.0); DIRECT BILIRUBIN 0.2 mg/dL (0.0-0.2); POTASSIUM 4.4 mmol/L (3.5-5.1); TOTAL BILIRUBIN 0.6 mg/dL (0.2-1.0); TOTAL PROTEIN 7.9 g/dL (6.4-8.2)
[2019-10-16 22:02] LABS: SEDIMENTATION RATE 26 (0-25)
[2019-10-16] MEDS ORDERED: cefTRIAXone SODIUM 1 GM VIAL ONE (23:00)
[2019-10-16] MEDS ORDERED: IV RINGERS SOLUTION,LACTATED 1,000 ML IV ONE (23:00)
[2019-10-16] MEDS ORDERED: IV NORMAL SALINE 50ML 50 ML ONE (23:00)
[2019-10-16] MEDS ORDERED: LEVO500T59 PO (23:14)
[2019-10-17 01:50] VITALS: BP 146/82
--- NOTE | 2019-10-17 03:54 | EKG ---
[address] [address] Test Date: 2019-10-16 Test Time: 19:56:17 Pat Name: MARCE CAMPBELL Department: Room: Gender: F No Experience: : 1940 Requested By: ÁLVARO VERA Order Number: [id number] Reading MD: Measurements Intervals [place] Rate: 69 P: 31 AR: 158 QRS: 21 QRSD: 80 T: 51 QT: 412 QTc: 443 Interpretive Statements SINUS ARRHYTHMIA OTHERWISE NORMAL ECG RI6.01 No previous ECG available for comparison
== END 2019-10-17 01:50 | disposition home or self-care (01) ==
LOC: ER 18:50
DX: N39.0 Urinary tract infection, site not specified (principal); E86.0 Dehydration; R42 Dizziness and giddiness; J44.9 Chronic obstructive pulmonary disease, unspecified; I25.10 Atherosclerotic heart disease of native coronary artery without angina pectoris; E11.9 Type 2 diabetes mellitus without complications; I10 Essential (primary) hypertension; Z90.49 Acquired absence of other specified parts of digestive tract; Z90.710 Acquired absence of both cervix and uterus; Z88.8 Allergy status to other drugs, medicaments and biological substances
CPT/HCPCS: 36415; 70450; 71046; 73552; 80048; 80076; 80307; 81001; 82550; 83690; 83735; 83880; 84443; 84484; 85025; 85379; 85610; 85651; 85730; 87086; 87186; 87804; 93005; 96361; 96365; 99285; J0696; J7120